=== PATIENT | female | born 1970 | race Caucasian/White ===

== ENCOUNTER 2017-09-28 12:40 | Emergency (ER) | payer MEDICAID ==
[~2017-09-28] VITALS: Ht 165.1 cm; Wt 56.7 kg
--- NOTE | 2017-09-28 13:05 | NUR ---
Pt c/o CP, pressure, 5-6/10 for 4 days. Pt also c/o cough and SOB. Pt denies dizziness, n/v, no other complaints, no distress noted. Pt placed on monitor, EKG -- given to MD, IV 20g left AC, Blood drawn and given to civil laboratory technician.
[2017-09-28] MEDS ORDERED: LIDOCAINE VISCUS 2% 15 ML UDC MM ONE (13:15)
[2017-09-28] MEDS ORDERED: MAG HYDROX/AL HYDROX/SIMETH 30 ML LIQUID UDC PO ONE (13:15)
[2017-09-28] MEDS ORDERED: PANTOPRAZOLE SODIUM 40 MG VIAL IV ONE (13:15)
[2017-09-28 13:25] LABS: BASOPHILS % (AUTO) 1.1 % (0.0-2.0); EOSINOPHILS # (AUTO) 0.1 K/uL (0.0-0.7); EOSINOPHILS % (AUTO) 1.3 % (0.0-7.0); HEMATOCRIT 39.6 % (31.2-41.9); HEMOGLOBIN 13.6 g/dL (10.9-14.3); LYMPHOCYTES # (AUTO) 1.4 K/uL (20.0-40.0); LYMPHOCYTES % (AUTO) 32.9 % (20.5-51.5); MEAN CORPUSCULAR HEMOGLOBIN 32.6 uug (24.7-32.8); MEAN CORPUSCULAR HGB CONC 34 g/dL (32.3-35.6); MEAN CORPUSCULAR VOLUME 95.3 fL (75.5-95.3); MONOCYTES # (AUTO) 0.3 K/uL (2.0-10.0); MONOCYTES % (AUTO) 6.6 % (0.0-11.0); NEUTROPHILS # (AUTO) 2.5 K/uL (1.8-8.9); NEUTROPHILS % (AUTO) 58.1 % (38.5-71.5); PLATELET COUNT (AUTO) 206 K/uL (179-408); RED BLOOD CELL COUNT(AUTO) 4.15 MIL/uL (3.63-4.92); WHITE BLOOD COUNT (AUTO) 4.3 K/uL (3.8-11.8)
[2017-09-28] MEDS ORDERED: MAG HYDROX/AL HYDROX/SIMETH 30 ML LIQUID UDC ONE (13:27)
[2017-09-28] MEDS ORDERED: PANTOPRAZOLE SODIUM 40 MG VIAL ONE (13:27)
[2017-09-28] MEDS ORDERED: LIDOCAINE VISCUS 2% 15 ML UDC ONE (13:28)
[2017-09-28 13:38] LABS: BILIRUBIN,DIRECT 0.1 mg/dL (0.0-0.2); BILIRUBIN,TOTAL 0.6 mg/dL (0.2-1.0); CREATININE 0.7 mg/dL (0.6-1.3); POTASSIUM 4.2 mmol/L (3.5-5.1); TOTAL PROTEIN, SERUM 7.4 g/dL (6.4-8.2)
--- NOTE | 2017-09-28 13:57 | NUR ---
Pt c/o sudden increase in CP, MD informed. Repeated EKG and gave to
[2017-09-28] MEDS ORDERED: KETOROLAC TROMETHAMINE 30 MG INJ ONE (14:03)
[2017-09-28] MEDS ORDERED: KETOROLAC TROMETHAMINE 30 MG INJ IVP ONE (14:15)
--- NOTE | 2017-09-28 15:50 | NUR ---
Pt resting in bed, no complaints, no distress noted.
--- NOTE | 2017-09-28 16:38 | NUR ---
Removed IV intact, site okay, bandaged. Gave pt test results, Radiology CD, RX and d/c instructions, verbalized understanding.
[2017-09-28 16:41] VITALS: BP 117/70
== END 2017-09-28 16:42 | disposition home or self-care (01) ==
LOC: ER 12:40
DX: J20.8 Acute bronchitis due to other specified organisms (principal); R91.8 Other nonspecific abnormal finding of lung field; F17.210 Nicotine dependence, cigarettes, uncomplicated
CPT/HCPCS: 36415; 71045; 71250; 80048; 80076; 83690; 84484; 84703; 85025; 85379; 93005; 96374; 96375; 99285; A4663; C9113; J1885; 70030-TC